=== PATIENT | female | born 1950 | race Caucasian/White ===

== ENCOUNTER → 2018-06-29 | Day surgery (SDC) | payer MEDICARE, BC ==
[~2018-06-29] MED LIST: ACETAMINOPHEN 325 MG TAB PO; AL HYDROX/MG HYDROX/SIMETH 30 ML CUP PO; CLOPIDOGREL 75 MG TAB; FENTAnyl 50 MCG/ML VIAL; HEPARIN 1000 UNITS/ML 10 ML INJ; IODIXANOL LOCM 100 ML BTL; LIDOCAINE 1% (MDV) 20 ML INJ; MIDAZOLAM 1 MG/ML 2 ML INJ; NITROGLYCERIN (IC) 100 MCG/ML INJ; PHENYLephrine (100 MCG/ML) 5ML SYG; SOD CHLORIDE 0.45% 1,000 ML IV; VERAPAMIL 5 MG INJ; hydrALAzine 20 MG INJ; morphine 2 MG INJ IV
[2018-06-29 10:15] LABS: ADD MAN DIFF? NO
[2018-06-29 10:17] LABS: BASOPHILS % 0.6 % (0.0-2.0); EOSINOPHILS % 0.8 % (0.0-7.0); HEMATOCRIT 39.9 % (37.0-47.0); HEMOGLOBIN 13.5 g/dl (12.0-16.0); LYMPHOCYTES # 1.9 10^3/ul (0.8-2.9); LYMPHOCYTES % 38.6 % (15.0-51.0); MEAN CORPUSCULAR HEMOGLOBIN 29.4 pg (29.0-33.0); MEAN CORPUSCULAR HGB CONC 33.8 g/dl (32.0-37.0); MEAN CORPUSCULAR VOLUME 86.9 fl (82.0-101.0); MONOCYTE # 0.2 10^3/ul (0.3-0.9); MONOCYTES % 4.6 % (0.0-11.0); NEUTROPHIL # 2.8 10^3/ul (1.6-7.5); NEUTROPHILS % 55.2 % (39.0-77.0); PLATELET COUNT 195 10^3/UL (140-415); RED BLOOD COUNT 4.59 10^6/ul (4.20-5.40); RED CELL DISTRIBUTION WIDTH 12.1 % (11.5-14.5)
[2018-06-29 10:37] LABS: ALANINE AMINOTRANSFERASE 31 IU/L (13-69); ALBUMIN 4.8 g/dl (3.3-4.9); ALBUMIN/GLOBULIN RATIO 1.41; ALKALINE PHOSPHATASE 110 IU/L (42-121); ANION GAP 11 (5-13); ASPARTATE AMINO TRANSFERASE 24 IU/L (15-46); BILIRUBIN,INDIRECT 0.2 mg/dl (0-1.1); BILIRUBIN,TOTAL 0.2 mg/dl (0.2-1.3); BLOOD UREA NITROGEN 16 mg/dl (7-20); CALCIUM 10.2 mg/dl (8.4-10.2); CARBON DIOXIDE 27 mmol/L (21-31); CHLORIDE 105 mmol/L (97-110); CHOL/HDL RATIO 5.7 RATIO; CHOLESTEROL 225 mg/dl (100-200); CREATININE 0.48 mg/dl (0.44-1.00); Estimated GFR > 60 mL/min (>60); GLUCOSE 143 mg/dl (70-220); HDL CHOLESTEROL 39 mg/dl (35-98); INR 0.85; POTASSIUM 4.3 mmol/L (3.5-5.1); PROTIME 11.7 Sec (11.9-14.9); PT RATIO 0.9; SODIUM 143 mmol/L (135-144); TOTAL PROTEIN 8.2 g/dl (6.1-8.1)
[2018-06-29] MEDS: DIPHENHYDRAMINE 50 MG CAP PO (10:38)
[2018-06-29] MEDS: DIAZEPAM 5 MG TAB PO (10:38)
[2018-06-29] MEDS: FAMOTIDINE 20 MG TAB PO (10:38)
[2018-06-29 10:44] LABS: PARTIAL THROMBOPLASTIN TIME 25.4 Sec (23.0-35.0)
[2018-06-29 10:55] LABS: LDL CHOLESTEROL,CALCULATED 74 mg/dl; TRIGLYCERIDES 561 mg/dl (0-149)
[2018-06-29] MEDS: SOD CHLORIDE 0.9% 1,000 ML IV (12:04)
[2018-06-29] MEDS: ONDANSETRON 4 MG INJ IV (12:45)
== END | disposition home or self-care (01) ==
LOC: SDS 09:14
DX: I25.10 Atherosclerotic heart disease of native coronary artery without angina pectoris (principal); I10 Essential (primary) hypertension; E78.5 Hyperlipidemia, unspecified
CPT/HCPCS: 71045; 80053; 80061; 82962; 85025; 85610; 85730; 93005; 93458